=== PATIENT | female | born 1980 | race Caucasian/White ===

== ENCOUNTER 2017-11-29 01:17 | Inpatient (IN) | payer BC, OTHER ==
--- NOTE | 2017-11-29 05:32 | HP ---
General Information - General Information Maternal Age: 37 Grav: 2 Para: 1 SAB: 0 IEA: 0 Estimated Due Date: 11/23/17 Determined By: LMP Gestational Age in Weeks and Days: 40 Weeks and 6 Days Maternal Blood Type and Rh: A Positive - Results this Serology/RPR Result: Non-Reactive Rubella Result: Immune HBsAg Result: Negative HIV Result: Negative GBS Culture Result: Negative Past Medical History Delivery History: Hx Uncomplicated Vaginal Delivery, See Records Pertinent Past Medical History: Non-Contributory Pertinent Past Surgical History: See Records Pertinent Family History: See Records - Antepartal Records Antepartal Records: Reviewed, Uncomplicated Review of Systems Constitutional: Comfortable CV Complaint: No Respiratory: Shortness of Breath: No Gastrointestinal: No Nausea/Vomiting Genitourinary: Bleeding - pink discharge, Leaking Fluid Musculoskeletal: Contractions - q5-7min Neurological: No Headache, No Visual Changes Movement: Normal Exam Allergies/Adverse Reactions: Allergies No Known Allergies Allergy (Verified 11/29/17 02:07) Lab Values - Entire Visit: Laboratory Tests 11/29/17 01:40 Vag Amniotic Fld Detect Positive - Measurements Height: 4 ft 11 in Weight: 170 lb Weight in lbs: 170 Body Mass Index (BMI): 34.3 Pre- Weight: 148 lb Weight Gained This : 22 lbs and 0 ozs - Exam Abdomen: No Upper Quadrant Pain Breast: Breast Exam Deferred Extremities: No Edema Heart: Normal Rhythm/Heart Sounds HEENT: No Significant Findings EFM Findings - External Monitor Findings Baseline Heart Rate: 125 External Monitor Findings: Accelerations Present, No Pattern of Variable or Late Decelerations, Variability Moderate, Baseline Stable Contractions: Irregular - q5-7min Assessment/Plan - Reason for Visit Reason for Visit: ROM @12:15am, early labor - Plan Plan: Observe, Early Labor
[2017-11-29] MEDS ORDERED: OBEPIDURAL* 250 ML EPIDURAL ONE (12:05)
[2017-11-29 12:17] LABS: ABS Basophils 0.1 10^3/ul (0-0.2); ABS Eosinophils 0.1 10^3/ul (0-0.6); ABS Lymphocytes 1.4 10^3/ul (1.0-4.8); ABS Monocytes 0.8 10^3/ul (0-0.8); ABS Neutrophils 8.3 10^3/ul (1.5-7.7); ABS Nucleated RBC 0 10^3/ul; Eosinophil % 0.6 % (0-6); Hematocrit 35 % (35-47); Hemoglobin 12.1 g/dl (12.0-16.0); Lymphocyte % 12.9 % (25-47); Mean Corpuscular HGB Conc 34 g/dl (31-36); Mean Corpuscular Hemoglobin 29 pg (27-31); Mean Corpuscular Volume 84 fL (80-97); Mean Platelet Volume 9.2 um3 (7.4-10.4); Nucleated Red Blood Cells % 0; Platelet Count 177 10^3/ul (150-450); Red Blood Count 4.22 10^6/ul (4.0-5.4); Red Cell Distribution Width 15 % (10.5-15); White Blood Count 10.7 10^3/ul (3.5-10.8)
[2017-11-29] MEDS ORDERED: Famotidine TAB* 20 MG PO PRN (12:50)
[2017-11-29] MEDS ORDERED: EPHEDrine (Pressors)* 50 MG/ML VIAL IV PUSH PRN ×2 (12:50)
[2017-11-29] MEDS ORDERED: Phenylephrine IV* 40 MCG/ML 10 ML SYRINGE IV PUSH PRN ×2 (12:50)
[2017-11-29] MEDS ORDERED: Sodium Citrate/Citric Acid* 15 ML UDC PO PRN (12:50)
[2017-11-29] MEDS ORDERED: OBEPIDURAL* 250 ML EPIDURAL SCH (13:00)
[2017-11-29] MEDS ORDERED: Oxytocin in LR* 20 UNITS/1,000 ML BAG IVPB ONE (19:39)
[2017-11-29] MEDS ORDERED: Acetaminophen TAB* 325 MG PO PRN (21:10)
[2017-11-29] MEDS ORDERED: Glycerin ADULT SUPP PR PRN (21:10)
[2017-11-29] MEDS ORDERED: Dibucaine 1% 28.35 GM TUBE PR PRN (21:10)
[2017-11-29] MEDS ORDERED: Oxytocin in LR* 20 UNITS/1,000 ML BAG IVPB SCH (22:00)
[2017-11-29] MEDS: Ibuprofen TAB* 600 MG PO PRN (23:49)
[2017-11-29] MEDS: Witch Hazel PAD* JAR TOPICAL PRN (23:49)
[2017-11-30 07:15] LABS: ABS Basophils 0 10^3/ul (0-0.2); ABS Eosinophils 0.1 10^3/ul (0-0.6); ABS Lymphocytes 1.6 10^3/ul (1.0-4.8); ABS Monocytes 1.1 10^3/ul (0-0.8); ABS Neutrophils 10.4 10^3/ul (1.5-7.7); ABS Nucleated RBC 0 10^3/ul; Eosinophil % 0.5 % (0-6); Hematocrit 29 % (35-47); Hemoglobin 10.1 g/dl (12.0-16.0); Mean Corpuscular HGB Conc 34 g/dl (31-36); Mean Corpuscular Hemoglobin 29 pg (27-31); Mean Corpuscular Volume 85 fL (80-97); Mean Platelet Volume 9.6 um3 (7.4-10.4); Nucleated Red Blood Cells % 0.1; Platelet Count 159 10^3/ul (150-450); Red Blood Count 3.45 10^6/ul (4.0-5.4); Red Cell Distribution Width 15 % (10.5-15); White Blood Count 13.1 10^3/ul (3.5-10.8)
[2017-11-30] MEDS: Ibuprofen TAB* 600 MG PO PRN ×2 (08:23→16:03)
[2017-11-30] MEDS: Ferrous Gluconate TAB* 324 MG TAB PO SCH ×2 (08:24→22:12)
[2017-11-30] MEDS: Docusate CAP* 100 MG PO SCH ×3 (08:25→22:12)
[2017-11-30] MEDS ORDERED: Simethicone TAB* 80 MG TAB.CHEW PO SCH (08:30)
[2017-12-01 07:55] VITALS: BP 109/66
--- NOTE | 2017-12-01 09:15 | PTEDU ---
Patient Name: CORIE ARNOLD CORIE ARNOLD selected video: Never Ever Shake a Baby to view on 12/01/2017 at 9:13:57 AM from [id number]_ [id number]
--- NOTE | 2017-12-01 09:23 | PTEDU ---
Patient Name: CORIE ARNOLD CORIE ARNOLD selected video: Follow Me Mum[place] to view on 8 at 9:23:09 AM from [id number]
[2017-12-01] MEDS: Docusate CAP* 100 MG PO SCH ×2 (10:09→12:44)
[2017-12-01] MEDS: Ferrous Gluconate TAB* 324 MG TAB PO SCH (10:09)
[2017-12-01] MEDS: Witch Hazel PAD* JAR TOPICAL PRN (12:44)
[2017-12-01] MEDS: Ibuprofen TAB* 600 MG PO PRN (12:46)
== END 2017-12-01 13:52 | disposition home or self-care (01) | DRG 560 ==
LOC: MCHOBOUT 01:17 → MCHOB 02:23
PROVIDERS: ADMIT Obstetrics & Gynecology; ATTEND Obstetrics & Gynecology
PROC: 4A1HX4Z Monitoring of Products of Conception, Cardiac Electrical Activity, External Approach (ICD-10-PCS; principal; 2017-11-29)
PROC: 10E0XZZ Delivery of Products of Conception, External Approach (ICD-10-PCS; 2017-11-29)
PROC: 0KQM0ZZ Repair Perineum Muscle, Open Approach (ICD-10-PCS; 2017-11-29)
PROC: 10907ZC Drainage of Amniotic Fluid, Therapeutic from Products of Conception, Via Natural or Artificial Opening (ICD-10-PCS; 2017-11-29)
DX: O48.0 Post-term pregnancy (principal); Z3A.40 40 weeks gestation of pregnancy; Z37.0 Single live birth; O70.1 Second degree perineal laceration during delivery
CPT/HCPCS: 36415; 84112; 85025; 86850; 86900; 86901; A9270-GY